=== PATIENT | male | born 1965 | race Hispanic/Latino ===

== ENCOUNTER 2023-04-29 06:38 | Inpatient (IN) | payer OTHER ==
[~2023-04-29] VITALS: Ht 170.2 cm; Wt 77.1 kg
[2023-04-29] VITALS (23 sets, daily range): BP systolic 127–155; BP diastolic 61–88
[2023-04-29 07:14] LABS: BASOPHILS % (AUTO) 0.4 % (0.0-5.0); EOSINOPHILS % (AUTO) 0.6 % (0.0-8.0); HEMATOCRIT 43.3 % (42-54); LYMPHOCYTES % (AUTO) 6.8 % (21.0-51.0); MEAN CORPUSCULAR HEMOGLOBIN 30.8 pg (27.0-33.0); MEAN CORPUSCULAR HGB CONC 34.2 g/dL (32.0-36.0); MONOCYTES % (AUTO) 7.6 % (3.0-13.0); NEUTROPHILS % (AUTO) 83.5 % (40.0-77.0); PLATELET COUNT (AUTO) 202 K/uL (130-400); RED BLOOD CELL COUNT(AUTO) 4.81 MIL/uL (4.50-6.20); RED CELL DISTRIBUTION WIDTH 12.3 % (11.0-15.5); WHITE BLOOD COUNT (AUTO) 14.6 K/uL (4.8-10.8)
[2023-04-29 07:25] LABS: ALBUMIN 2.9 g/dL (3.5-5.0); MAGNESIUM 2.2 mg/dL (1.80-2.40); POTASSIUM 4.1 mmol/L (3.5-5.1); TOTAL PROTEIN, SERUM 7.5 g/dL (6.0-8.3)
[2023-04-29 07:54] LABS: APPEARANCE,URINE CLEAR (CLEAR); BILIRUBIN,URINE NEGATIVE (NEGATIVE); COLOR,URINE YELLOW (YELLOW); GLUCOSE, URINE (UA) NEGATIVE (NEGATIVE); KETONES,URINE NEGATIVE (NEGATIVE); LEUKOCYTE ESTERASE ,URINE NEGATIVE Leu/uL (NEGATIVE); NITRATE,URINE NEGATIVE (NEGATIVE); OCCULT BLOOD,URINE TRACE-INTACT (NEGATIVE); PH,URINE 6.5 (5.0-8.0); PROTEIN,URINE TRACE mg/dL (NEGATIVE)
[2023-04-29] MEDS ORDERED: IOHEXOL-350 75 ML VIAL IV ONE (07:58)
[2023-04-29 08:39] LABS: BACTERIA,URINE Rare /HPF (None Seen); RBC,URINE 0-1 /HPF (0-1); SQUAMOUS EPITHELIAL CELL,UR Rare /HPF (0-2); WBC,URINE None Seen /HPF (0-1)
[2023-04-29] MEDS ORDERED: ZOSYN 3.375GM+NS 50ML 50 ML IVPB ONE (08:59)
[2023-04-29] MEDS ORDERED: 0.9%NACL 50ML IV SCH (09:00)
[2023-04-29] MEDS ORDERED: 0.9%NACL 1000ML 1,000 ML IV SCH (09:00)
[2023-04-29] MEDS ORDERED: ONDANSETRON 4MG INJ IVP ONE (09:00)
[2023-04-29] MEDS ORDERED: MORPHINE 4 MG SYG IVP PRN (09:00)
[2023-04-29] MEDS: ZOSYN 3.375GM +NS 50ML IVPB SCH ×2 (09:10→16:53)
[2023-04-29] MEDS ORDERED: ROCURONIUM 10MG/1ML SYR 10 MG/ML ML ONE (10:41)
[2023-04-29] MEDS ORDERED: SUCCINYLCHOLINE 200MG/10ML SYR ONE (10:41)
[2023-04-29] MEDS ORDERED: PROPOFOL 10 MG/ML 20ML VIAL IV ONE (10:41)
[2023-04-29] MEDS ORDERED: FENTANYL CITRATE PF 50 MCG/1 ML 2ML VIAL ONE (10:41)
[2023-04-29] MEDS ORDERED: MIDAZOLAM HCL 1 MG/ML 2ML VIAL ONE (10:41)
[2023-04-29] MEDS ORDERED: BUPIVACAINE/PF 0.5% 30ML VIAL ONE (10:49)
[2023-04-29] MEDS ORDERED: BUPIVACAINE/PF 0.5% 30ML VIAL INJ ONE (11:38)
[2023-04-29] MEDS ORDERED: ONDANSETRON 4MG INJ IVP PRN (12:00)
[2023-04-29] MEDS ORDERED: D5W-1/2 NS/20MEQ KCL 1,000 ML IV SCH (12:00)
[2023-04-29] MEDS ORDERED: HYDROCODONE/ACETAMINOPHEN 5/325 MG TAB PO PRN (12:00)
[2023-04-29] MEDS ORDERED: MEPERIDINE-PF 25 MG/ML SYG ONE (12:21)
[2023-04-29 13:18] LABS: INR 0.97 (0.85-1.15); PROTHROMBIN TIME 11.3 SEC (9.6-11.6)
[2023-04-29 13:19] LABS: PARTIAL THROMBOPLASTIN TIME 27.6 SEC (26.3-35.5)
[2023-04-29 13:33] LABS: CRP QUANTITATIVE 207.6 mg/L (0.00-9.0)
[2023-04-29 13:34] LABS: THYROID STIMULATING HORMONE 2.34 uIU/mL (0.36-3.74)
[2023-04-29 13:47] LABS: HEMOGLOBIN A1C 5.8 % (4.0-6.0)
[2023-04-29] MEDS: MORPHINE 4 MG SYG IV PRN ×2 (14:21→20:06)
[2023-04-29] MEDS: FLUCONAZOLE 200 MG/NS 100 ML 100 ML IV SCH (14:21)
[2023-04-29] MEDS: DEXTROSE 5 % AND 0.9 % NACL 1,000 ML IV SCH (14:34)
[2023-04-29] MEDS: ACETAMINOPHEN 325 MG TAB PO PRN (17:38)
[2023-04-29] MEDS: FAMOTIDINE 20MG VIAL IV SCH (20:06)
[2023-04-30] MEDS: KETOROLAC 15MG/ML VIAL (15MG/ML) IV PRN ×2 (01:44→11:02)
[2023-04-30] MEDS: ZOSYN 3.375GM +NS 50ML IVPB SCH ×3 (01:45→17:14)
[2023-04-30] MEDS: DEXTROSE 5 % AND 0.9 % NACL 1,000 ML IV SCH (02:20)
[2023-04-30 03:30] VITALS: BP 123/65
[2023-04-30 05:09] LABS: BASOPHILS % (AUTO) 0.8 % (0.0-5.0); EOSINOPHILS % (AUTO) 0.1 % (0.0-8.0); HEMATOCRIT 39.7 % (42-54); LYMPHOCYTES % (AUTO) 10.1 % (21.0-51.0); MEAN CORPUSCULAR HEMOGLOBIN 30.9 pg (27.0-33.0); MEAN CORPUSCULAR HGB CONC 34.3 g/dL (32.0-36.0); MEAN CORPUSCULAR VOLUME 90.2 fL (79-99); MONOCYTES % (AUTO) 12.1 % (3.0-13.0); NEUTROPHILS % (AUTO) 75.7 % (40.0-77.0); PLATELET COUNT (AUTO) 200 K/uL (130-400); RED CELL DISTRIBUTION WIDTH 12.6 % (11.0-15.5); WHITE BLOOD COUNT (AUTO) 9.3 K/uL (4.8-10.8)
[2023-04-30 05:27] LABS: ALBUMIN 2.2 g/dL (3.5-5.0); CREATININE 1.4 mg/dL (0.5-1.5); MAGNESIUM 1.7 mg/dL (1.80-2.40); POTASSIUM 4.2 mmol/L (3.5-5.1); TOTAL PROTEIN, SERUM 6.3 g/dL (6.0-8.3)
[2023-04-30 08:00] VITALS: BP 116/74
[2023-04-30] MEDS: FAMOTIDINE 20MG VIAL IV SCH ×2 (08:39→22:36)
[2023-04-30] MEDS: SIMETHICONE 80 MG TAB.CHEW PO PRN ×2 (10:50→15:40)
[2023-04-30] MEDS ORDERED: ACET-2079 PO (11:54)
[2023-04-30 11:55] VITALS: BP 137/80
[2023-04-30] MEDS: FLUCONAZOLE 200 MG/NS 100 ML 100 ML IV SCH (15:38)
[2023-04-30 16:00] VITALS: BP 134/78
[2023-04-30 19:00] VITALS: BP 130/61
[2023-04-30] MEDS: ACETAMINOPHEN 325 MG TAB PO PRN (20:09)
[2023-04-30 23:00] VITALS: BP 123/70
[2023-04-30] MEDS: 0.9%NACL 1000ML 1,000 ML IV SCH (23:40)
[2023-05-01] MEDS: 0.9%NACL 1000ML 1,000 ML IV SCH ×3 (01:46→23:00)
[2023-05-01] MEDS: ZOSYN 3.375GM +NS 50ML IVPB SCH ×3 (01:46→16:36)
[2023-05-01 04:00] VITALS: BP 141/74
[2023-05-01 06:10] LABS: BASOPHILS % (AUTO) 0.5 % (0.0-5.0); EOSINOPHILS % (AUTO) 0.1 % (0.0-8.0); LYMPHOCYTES % (AUTO) 9.4 % (21.0-51.0); MEAN CORPUSCULAR HEMOGLOBIN 30.7 pg (27.0-33.0); MEAN CORPUSCULAR HGB CONC 34.2 g/dL (32.0-36.0); MEAN CORPUSCULAR VOLUME 89.6 fL (79-99); MONOCYTES % (AUTO) 8.4 % (3.0-13.0); NEUTROPHILS % (AUTO) 79.5 % (40.0-77.0); PLATELET COUNT (AUTO) 217 K/uL (130-400); RED BLOOD CELL COUNT(AUTO) 4.24 MIL/uL (4.50-6.20); RED CELL DISTRIBUTION WIDTH 12.7 % (11.0-15.5)
[2023-05-01 06:48] LABS: ALBUMIN 2.1 g/dL (3.5-5.0); CREATININE 1.2 mg/dL (0.5-1.5); MAGNESIUM 2.1 mg/dL (1.80-2.40); POTASSIUM 3.7 mmol/L (3.5-5.1); TOTAL PROTEIN, SERUM 6.3 g/dL (6.0-8.3)
[2023-05-01 08:00] VITALS: BP 138/78
[2023-05-01] MEDS: SIMETHICONE 80 MG TAB.CHEW PO PRN ×2 (08:26→16:36)
[2023-05-01] MEDS: FAMOTIDINE 20MG VIAL IV SCH ×2 (08:26→21:02)
[2023-05-01] MEDS ORDERED: HYDROCODONE/ACETAMINOPHEN 5/325 MG TAB PO ONE (08:30)
[2023-05-01 12:00] VITALS: BP 136/78
[2023-05-01] MEDS: FLUCONAZOLE 200 MG/NS 100 ML 100 ML IV SCH (13:28)
[2023-05-01 16:00] VITALS: BP 135/78
[2023-05-01] MEDS: HYDROCODONE/ACETAMINOPHEN 5/325 MG TAB PO PRN (16:37)
[2023-05-01 20:00] VITALS: BP 144/75
[2023-05-02] VITALS (7 sets, daily range): BP systolic 129–156; BP diastolic 75–82
[2023-05-02] MEDS ORDERED: LACTULOSE 20 GM/30 ML UDCUP PO ONE
[2023-05-02] MEDS: ZOSYN 3.375GM +NS 50ML IVPB SCH ×3 (00:15→17:26)
[2023-05-02] MEDS: KETOROLAC 15MG/ML VIAL (15MG/ML) IV PRN ×2 (03:52→20:28)
[2023-05-02 05:33] LABS: BASOPHILS % (AUTO) 0.5 % (0.0-5.0); EOSINOPHILS % (AUTO) 0.1 % (0.0-8.0); LYMPHOCYTES % (AUTO) 7.7 % (21.0-51.0); MEAN CORPUSCULAR HEMOGLOBIN 30.5 pg (27.0-33.0); MEAN CORPUSCULAR HGB CONC 33.1 g/dL (32.0-36.0); MEAN CORPUSCULAR VOLUME 92.2 fL (79-99); MONOCYTES % (AUTO) 5.8 % (3.0-13.0); NEUTROPHILS % (AUTO) 84.6 % (40.0-77.0); PLATELET COUNT (AUTO) 256 K/uL (130-400); RED BLOOD CELL COUNT(AUTO) 4.23 MIL/uL (4.50-6.20); RED CELL DISTRIBUTION WIDTH 12.9 % (11.0-15.5); WHITE BLOOD COUNT (AUTO) 20.6 K/uL (4.8-10.8)
[2023-05-02 05:58] LABS: ALBUMIN 1.9 g/dL (3.5-5.0); CREATININE 1.2 mg/dL (0.5-1.5); POTASSIUM 3.6 mmol/L (3.5-5.1); TOTAL PROTEIN, SERUM 6.5 g/dL (6.0-8.3)
[2023-05-02] MEDS: FAMOTIDINE 20MG VIAL IV SCH ×2 (08:13→20:32)
[2023-05-02] MEDS: POLYETHYLENE GLYCOL 3350 17 GM POWD.PACK PO SCH (08:13)
[2023-05-02] MEDS: HYDROCODONE/ACETAMINOPHEN 5/325 MG TAB PO PRN (08:34)
[2023-05-02] MEDS: 0.9%NACL 1000ML 1,000 ML IV SCH (12:20)
[2023-05-02] MEDS: FLUCONAZOLE 200 MG/NS 100 ML 100 ML IV SCH (14:45)
[2023-05-02] MEDS ORDERED: IOHEXOL 350 MG/ML 100ML INFUS..BTL IV ONE (17:50)
[2023-05-02] MEDS: HEPARIN 5,000 UNIT VIAL SQ SCH (20:32)
[2023-05-03] MEDS: ZOSYN 3.375GM +NS 50ML IVPB SCH ×3 (00:10→16:36)
[2023-05-03] MEDS: 0.9%NACL 1000ML 1,000 ML IV SCH ×2 (01:40→14:52)
[2023-05-03 04:00] VITALS: BP 143/78
[2023-05-03] MEDS: KETOROLAC 15MG/ML VIAL (15MG/ML) IV PRN (04:33)
[2023-05-03] MEDS: POLYETHYLENE GLYCOL 3350 17 GM POWD.PACK PO SCH (08:09)
[2023-05-03] MEDS: FAMOTIDINE 20MG VIAL IV SCH ×2 (08:09→21:02)
[2023-05-03] MEDS: HEPARIN 5,000 UNIT VIAL SQ SCH ×2 (08:18→21:11)
[2023-05-03 08:21] VITALS: BP 136/78
[2023-05-03 11:30] VITALS: BP 144/87
[2023-05-03] MEDS: MORPHINE 4 MG SYG IV PRN ×3 (11:39→22:14)
[2023-05-03 12:14] LABS: HEMATOCRIT 37.8 % (42-54); MEAN CORPUSCULAR HEMOGLOBIN 30.9 pg (27.0-33.0); MEAN CORPUSCULAR HGB CONC 33.6 g/dL (32.0-36.0); RED BLOOD CELL COUNT(AUTO) 4.11 MIL/uL (4.50-6.20); RED CELL DISTRIBUTION WIDTH 13.1 % (11.0-15.5); WHITE BLOOD COUNT (AUTO) 16.7 K/uL (4.8-10.8)
[2023-05-03 12:24] LABS: CREATININE 0.9 mg/dL (0.5-1.5); MAGNESIUM 2.3 mg/dL (1.80-2.40); POTASSIUM 3.9 mmol/L (3.5-5.1)
[2023-05-03] MEDS: FLUCONAZOLE 200 MG/NS 100 ML 100 ML IV SCH (14:50)
[2023-05-03 16:00] VITALS: BP 141/78
[2023-05-03] MEDS: ACETAMINOPHEN 325 MG TAB PO PRN (16:37)
[2023-05-03 20:35] VITALS: BP 141/72
[2023-05-03 23:54] VITALS: BP 141/80
[2023-05-04] MEDS: ZOSYN 3.375GM +NS 50ML IVPB SCH ×3 (01:41→16:33)
[2023-05-04] MEDS: KETOROLAC 15MG/ML VIAL (15MG/ML) IV PRN (01:47)
[2023-05-04] MEDS: 0.9%NACL 1000ML 1,000 ML IV SCH (04:01)
[2023-05-04 05:02] VITALS: BP 135/74
[2023-05-04 05:06] LABS: BASOPHILS % (AUTO) 0.5 % (0.0-5.0); EOSINOPHILS % (AUTO) 0.5 % (0.0-8.0); HEMATOCRIT 34.9 % (42-54); LYMPHOCYTES % (AUTO) 8.6 % (21.0-51.0); MEAN CORPUSCULAR HGB CONC 33.8 g/dL (32.0-36.0); MEAN CORPUSCULAR VOLUME 91.6 fL (79-99); MONOCYTES % (AUTO) 7.3 % (3.0-13.0); NEUTROPHILS % (AUTO) 81.2 % (40.0-77.0); PLATELET COUNT (AUTO) 333 K/uL (130-400); RED BLOOD CELL COUNT(AUTO) 3.81 MIL/uL (4.50-6.20); RED CELL DISTRIBUTION WIDTH 12.8 % (11.0-15.5); WHITE BLOOD COUNT (AUTO) 15.1 K/uL (4.8-10.8)
[2023-05-04 05:31] LABS: ALBUMIN 1.7 g/dL (3.5-5.0); CREATININE 1.1 mg/dL (0.5-1.5); POTASSIUM 3.7 mmol/L (3.5-5.1)
[2023-05-04 07:59] VITALS: BP 150/79
[2023-05-04] MEDS: POLYETHYLENE GLYCOL 3350 17 GM POWD.PACK PO SCH (09:00)
[2023-05-04] MEDS: MORPHINE 4 MG SYG IV PRN (09:29)
[2023-05-04 11:41] VITALS: BP 147/77
[2023-05-04] MEDS: HYDROCODONE/ACETAMINOPHEN 5/325 MG TAB PO PRN ×3 (13:36→20:34)
[2023-05-04] MEDS: FLUCONAZOLE 200 MG/NS 100 ML 100 ML IV SCH (13:36)
[2023-05-04] MEDS: HEPARIN 5,000 UNIT VIAL SQ SCH ×2 (13:52→20:00)
[2023-05-04] MEDS: FAMOTIDINE 20MG VIAL IV SCH ×2 (13:53→20:33)
[2023-05-04 16:00] VITALS: BP 139/72
[2023-05-04 20:28] VITALS: BP 141/73
[2023-05-05] VITALS (12 sets, daily range): BP systolic 117–151; BP diastolic 63–80
[2023-05-05] MEDS: ZOSYN 3.375GM +NS 50ML IVPB SCH ×3 (01:13→17:48)
[2023-05-05] MEDS: MORPHINE 2 MG SYG IVP PRN ×2 (03:45→20:38)
[2023-05-05] MEDS: KETOROLAC 15MG/ML VIAL (15MG/ML) IV PRN ×2 (04:35→14:07)
[2023-05-05 05:34] LABS: BASOPHILS % (AUTO) 0.4 % (0.0-5.0); EOSINOPHILS % (AUTO) 0.5 % (0.0-8.0); HEMATOCRIT 34.3 % (42-54); LYMPHOCYTES % (AUTO) 8.1 % (21.0-51.0); MEAN CORPUSCULAR HEMOGLOBIN 31.2 pg (27.0-33.0); MEAN CORPUSCULAR HGB CONC 33.5 g/dL (32.0-36.0); MONOCYTES % (AUTO) 6.8 % (3.0-13.0); NEUTROPHILS % (AUTO) 82.3 % (40.0-77.0); PLATELET COUNT (AUTO) 370 K/uL (130-400); RED BLOOD CELL COUNT(AUTO) 3.69 MIL/uL (4.50-6.20); RED CELL DISTRIBUTION WIDTH 12.8 % (11.0-15.5); WHITE BLOOD COUNT (AUTO) 12.6 K/uL (4.8-10.8)
[2023-05-05 05:44] LABS: INR 1.03 (0.85-1.15); PROTHROMBIN TIME 11.9 SEC (9.6-11.6)
[2023-05-05 05:46] LABS: PARTIAL THROMBOPLASTIN TIME 27.5 SEC (26.3-35.5)
[2023-05-05 06:11] LABS: ALBUMIN 1.8 g/dL (3.5-5.0); CREATININE 0.9 mg/dL (0.5-1.5); POTASSIUM 3.3 mmol/L (3.5-5.1); TOTAL PROTEIN, SERUM 6.1 g/dL (6.0-8.3)
[2023-05-05] MEDS: HEPARIN 5,000 UNIT VIAL SQ SCH ×2 (08:00→20:18)
[2023-05-05] MEDS ORDERED: MAGNESIUM 2GM PREMIX 50ML 50 ML IV PRN (09:00)
[2023-05-05] MEDS: POLYETHYLENE GLYCOL 3350 17 GM POWD.PACK PO SCH (09:00)
[2023-05-05] MEDS ORDERED: POTASSIUM CHLORIDE 20MEQ/100ML 100 ML IV PRN (09:00)
[2023-05-05] MEDS: FAMOTIDINE 20MG VIAL IV SCH ×2 (10:06→20:17)
[2023-05-05] MEDS ORDERED: MIDAZOLAM HCL 1 MG/ML 2ML VIAL ONE (12:06)
[2023-05-05] MEDS ORDERED: FENTANYL CITRATE PF 50 MCG/1 ML 2ML VIAL ONE (12:06)
[2023-05-05] MEDS: FLUCONAZOLE 200 MG/NS 100 ML 100 ML IV SCH (14:06)
[2023-05-05] MEDS: ACETAMINOPHEN 325 MG TAB PO PRN (23:58)
[2023-05-06] VITALS: BP 136/70
[2023-05-06] MEDS ORDERED: POTASSIUM CHLORIDE 10% ELIXIR 20 MEQ/15 ML UDCUP PO PRN
[2023-05-06] MEDS: ZOSYN 3.375GM +NS 50ML IVPB SCH ×3 (01:11→16:16)
[2023-05-06 04:00] VITALS: BP 142/77
[2023-05-06 05:45] LABS: BASOPHILS % (AUTO) 0.6 % (0.0-5.0); EOSINOPHILS % (AUTO) 1.4 % (0.0-8.0); HEMATOCRIT 34.9 % (42-54); LYMPHOCYTES % (AUTO) 12.9 % (21.0-51.0); MEAN CORPUSCULAR HEMOGLOBIN 30.7 pg (27.0-33.0); MEAN CORPUSCULAR VOLUME 93.1 fL (79-99); MONOCYTES % (AUTO) 8.7 % (3.0-13.0); NEUTROPHILS % (AUTO) 71.8 % (40.0-77.0); PLATELET COUNT (AUTO) 403 K/uL (130-400); RED BLOOD CELL COUNT(AUTO) 3.75 MIL/uL (4.50-6.20); RED CELL DISTRIBUTION WIDTH 12.9 % (11.0-15.5); WHITE BLOOD COUNT (AUTO) 7.8 K/uL (4.8-10.8)
[2023-05-06 06:11] LABS: ALBUMIN 1.7 g/dL (3.5-5.0); CREATININE 1.1 mg/dL (0.5-1.5); POTASSIUM 3.3 mmol/L (3.5-5.1); TOTAL PROTEIN, SERUM 5.8 g/dL (6.0-8.3)
[2023-05-06] MEDS: MORPHINE 2 MG SYG IVP PRN (06:14)
[2023-05-06] MEDS: KCL 20 MEQ ERTAB PO PRN ×3 (06:53→16:17)
[2023-05-06 07:05] VITALS: BP 146/77
[2023-05-06] MEDS: FAMOTIDINE 20MG VIAL IV SCH ×2 (08:13→20:16)
[2023-05-06] MEDS: POLYETHYLENE GLYCOL 3350 17 GM POWD.PACK PO SCH (08:13)
[2023-05-06] MEDS: HEPARIN 5,000 UNIT VIAL SQ SCH ×2 (08:15→20:16)
[2023-05-06] MEDS: KETOROLAC 15MG/ML VIAL (15MG/ML) IV PRN ×2 (08:23→16:17)
[2023-05-06 12:00] VITALS: BP 133/75
[2023-05-06] MEDS: FLUCONAZOLE 200 MG/NS 100 ML 100 ML IV SCH (14:22)
[2023-05-06 16:00] VITALS: BP 159/74
[2023-05-06 20:00] VITALS: BP 139/73
[2023-05-07] VITALS: BP 136/83
[2023-05-07] MEDS: KETOROLAC 15MG/ML VIAL (15MG/ML) IV PRN ×2 (00:17→09:32)
[2023-05-07] MEDS: ZOSYN 3.375GM +NS 50ML IVPB SCH ×3 (00:17→15:59)
[2023-05-07 04:00] VITALS: BP 158/95
[2023-05-07] MEDS: MORPHINE 2 MG SYG IVP PRN ×2 (04:06→20:38)
[2023-05-07 05:51] LABS: HEMATOCRIT 35.5 % (42-54); MEAN CORPUSCULAR HEMOGLOBIN 30.8 pg (27.0-33.0); MEAN CORPUSCULAR VOLUME 93.4 fL (79-99); RED BLOOD CELL COUNT(AUTO) 3.8 MIL/uL (4.50-6.20); WHITE BLOOD COUNT (AUTO) 6.5 K/uL (4.8-10.8)
[2023-05-07 06:28] LABS: ALBUMIN 1.7 g/dL (3.5-5.0); CREATININE 1.1 mg/dL (0.5-1.5); POTASSIUM 3.9 mmol/L (3.5-5.1); TOTAL PROTEIN, SERUM 5.8 g/dL (6.0-8.3)
[2023-05-07 08:00] VITALS: BP 143/75
[2023-05-07] MEDS: FAMOTIDINE 20MG VIAL IV SCH ×2 (09:01→20:37)
[2023-05-07] MEDS: AMLODIPINE 5 MG TAB PO SCH (09:01)
[2023-05-07] MEDS: POLYETHYLENE GLYCOL 3350 17 GM POWD.PACK PO SCH (09:01)
[2023-05-07] MEDS: HEPARIN 5,000 UNIT VIAL SQ SCH ×2 (09:02→21:33)
[2023-05-07 11:50] VITALS: BP 131/73
[2023-05-07] MEDS: ACETAMINOPHEN WITH CODEINE 1 TAB TAB PO PRN ×2 (12:22→15:59)
[2023-05-07] MEDS: FLUCONAZOLE 200 MG/NS 100 ML 100 ML IV SCH (15:59)
[2023-05-07 16:00] VITALS: BP 123/65
[2023-05-07 20:00] VITALS: BP 138/68
[2023-05-08] VITALS (7 sets, daily range): BP systolic 120–139; BP diastolic 58–71
[2023-05-08] MEDS: ZOSYN 3.375GM +NS 50ML IVPB SCH ×3 (00:29→18:27)
[2023-05-08] MEDS: MORPHINE 2 MG SYG IVP PRN ×2 (03:53→16:50)
[2023-05-08 05:41] LABS: BASOPHILS % (AUTO) 0.4 % (0.0-5.0); EOSINOPHILS % (AUTO) 1.2 % (0.0-8.0); HEMATOCRIT 36.6 % (42-54); LYMPHOCYTES % (AUTO) 14.2 % (21.0-51.0); MEAN CORPUSCULAR HEMOGLOBIN 30.5 pg (27.0-33.0); MEAN CORPUSCULAR HGB CONC 32.5 g/dL (32.0-36.0); MEAN CORPUSCULAR VOLUME 93.8 fL (79-99); MONOCYTES % (AUTO) 7.2 % (3.0-13.0); NEUTROPHILS % (AUTO) 74.3 % (40.0-77.0); PLATELET COUNT (AUTO) 459 K/uL (130-400); RED CELL DISTRIBUTION WIDTH 12.8 % (11.0-15.5); WHITE BLOOD COUNT (AUTO) 10.1 K/uL (4.8-10.8)
[2023-05-08 05:58] LABS: ALBUMIN 1.9 g/dL (3.5-5.0)
[2023-05-08] MEDS: ACETAMINOPHEN WITH CODEINE 1 TAB TAB PO PRN ×2 (08:45→18:32)
[2023-05-08] MEDS: AMLODIPINE 5 MG TAB PO SCH (08:45)
[2023-05-08] MEDS: HEPARIN 5,000 UNIT VIAL SQ SCH ×2 (08:51→20:30)
[2023-05-08] MEDS: FAMOTIDINE 20MG VIAL IV SCH ×2 (08:51→19:58)
[2023-05-08] MEDS ORDERED: IOHEXOL-350 75 ML VIAL IV ONE (09:01)
[2023-05-08] MEDS: FLUCONAZOLE 200 MG/NS 100 ML 100 ML IV SCH (16:33)
[2023-05-08] MEDS: POLYETHYLENE GLYCOL 3350 17 GM POWD.PACK PO SCH (16:33)
[2023-05-09] MEDS: ZOSYN 3.375GM +NS 50ML IVPB SCH ×2 (01:08→10:12)
[2023-05-09] MEDS: ACETAMINOPHEN WITH CODEINE 1 TAB TAB PO PRN ×3 (01:10→20:44)
[2023-05-09] MEDS ORDERED: VANCOMYCIN 750MG VIAL IVPB SCH (02:00)
[2023-05-09 05:00] VITALS: BP 129/65
[2023-05-09 05:36] LABS: BASOPHILS % (AUTO) 0.4 % (0.0-5.0); EOSINOPHILS % (AUTO) 1.9 % (0.0-8.0); LYMPHOCYTES % (AUTO) 17.7 % (21.0-51.0); MEAN CORPUSCULAR HEMOGLOBIN 31.6 pg (27.0-33.0); MEAN CORPUSCULAR HGB CONC 33.7 g/dL (32.0-36.0); MEAN CORPUSCULAR VOLUME 93.6 fL (79-99); MONOCYTES % (AUTO) 8.2 % (3.0-13.0); NEUTROPHILS % (AUTO) 68.6 % (40.0-77.0); PLATELET COUNT (AUTO) 504 K/uL (130-400); RED BLOOD CELL COUNT(AUTO) 3.74 MIL/uL (4.50-6.20); RED CELL DISTRIBUTION WIDTH 12.9 % (11.0-15.5); WHITE BLOOD COUNT (AUTO) 9.1 K/uL (4.8-10.8)
[2023-05-09 05:53] LABS: CREATININE 1.2 mg/dL (0.5-1.5); CRP QUANTITATIVE 113.7 mg/L (0.00-9.0); POTASSIUM 3.8 mmol/L (3.5-5.1); TOTAL PROTEIN, SERUM 6.1 g/dL (6.0-8.3)
[2023-05-09 07:17] LABS: ERYTHROCYTE SEDIMENTATION RATE 34 MM/HR (0-20)
[2023-05-09 08:00] VITALS: BP 136/72
[2023-05-09] MEDS: POLYETHYLENE GLYCOL 3350 17 GM POWD.PACK PO SCH (10:12)
[2023-05-09] MEDS: FAMOTIDINE 20MG VIAL IV SCH ×2 (10:12→20:44)
[2023-05-09] MEDS: AMLODIPINE 5 MG TAB PO SCH (10:12)
[2023-05-09] MEDS: HEPARIN 5,000 UNIT VIAL SQ SCH ×2 (10:27→20:48)
[2023-05-09 12:01] VITALS: BP 126/63
[2023-05-09] MEDS ORDERED: PREDNISONE 5 MG TABLET PO ONE (12:30)
[2023-05-09] MEDS ORDERED: DIPHENHYDRAMINE HCL 25 MG CAPSULE PO PRN (12:30)
[2023-05-09] MEDS ORDERED: VANCOMYCIN PROTOCOL PER PHARMACY IV SCH (13:30)
[2023-05-09] MEDS ORDERED: LEVOFLOXACIN 750 MG TABLET PO SCH (13:30)
[2023-05-09] MEDS ORDERED: VANCOMYCIN 1.75 GM/250 ML BAG 250 ML IV ONE (14:00)
[2023-05-09 16:00] VITALS: BP 130/65
[2023-05-09] MEDS: SIMETHICONE 80 MG TAB.CHEW PO PRN (18:22)
[2023-05-09 19:00] VITALS: BP 135/64
[2023-05-09 23:00] VITALS: BP 118/63
[2023-05-10] MEDS: VANCOMYCIN 750MG VIAL IVPB SCH ×2 (00:52→14:35)
[2023-05-10 05:25] LABS: BASOPHILS % (AUTO) 0.6 % (0.0-5.0); EOSINOPHILS % (AUTO) 1.6 % (0.0-8.0); LYMPHOCYTES % (AUTO) 14.1 % (21.0-51.0); MEAN CORPUSCULAR HEMOGLOBIN 30.4 pg (27.0-33.0); MEAN CORPUSCULAR HGB CONC 32.6 g/dL (32.0-36.0); MEAN CORPUSCULAR VOLUME 93.1 fL (79-99); MONOCYTES % (AUTO) 6.2 % (3.0-13.0); NEUTROPHILS % (AUTO) 74.2 % (40.0-77.0); PLATELET COUNT (AUTO) 539 K/uL (130-400); RED BLOOD CELL COUNT(AUTO) 4.08 MIL/uL (4.50-6.20); RED CELL DISTRIBUTION WIDTH 12.7 % (11.0-15.5); WHITE BLOOD COUNT (AUTO) 8.9 K/uL (4.8-10.8)
[2023-05-10 05:43] LABS: POTASSIUM 4.2 mmol/L (3.5-5.1); TOTAL PROTEIN, SERUM 6.5 g/dL (6.0-8.3)
[2023-05-10 07:59] VITALS: BP 135/69
[2023-05-10] MEDS: POLYETHYLENE GLYCOL 3350 17 GM POWD.PACK PO SCH (08:20)
[2023-05-10] MEDS: FAMOTIDINE 20MG VIAL IV SCH ×2 (08:20→19:53)
[2023-05-10] MEDS: AMLODIPINE 5 MG TAB PO SCH (08:20)
[2023-05-10] MEDS: HEPARIN 5,000 UNIT VIAL SQ SCH ×2 (08:25→20:07)
[2023-05-10 12:00] VITALS: BP 118/63
[2023-05-10] MEDS: ACETAMINOPHEN WITH CODEINE 1 TAB TAB PO PRN ×2 (14:40→21:18)
[2023-05-10 16:00] VITALS: BP 123/67
[2023-05-10 19:30] VITALS: BP 127/67
[2023-05-10 23:00] VITALS: BP 123/68
[2023-05-11] MEDS: VANCOMYCIN 750MG VIAL IVPB SCH (01:59)
[2023-05-11 04:00] VITALS: BP 127/68
[2023-05-11 04:45] LABS: BASOPHILS % (AUTO) 0.5 % (0.0-5.0); EOSINOPHILS % (AUTO) 3.4 % (0.0-8.0); HEMATOCRIT 37.5 % (42-54); LYMPHOCYTES % (AUTO) 20.2 % (21.0-51.0); MEAN CORPUSCULAR HEMOGLOBIN 30.5 pg (27.0-33.0); MEAN CORPUSCULAR HGB CONC 32.5 g/dL (32.0-36.0); MEAN CORPUSCULAR VOLUME 93.8 fL (79-99); MONOCYTES % (AUTO) 7.3 % (3.0-13.0); NEUTROPHILS % (AUTO) 65.2 % (40.0-77.0); PLATELET COUNT (AUTO) 475 K/uL (130-400); RED CELL DISTRIBUTION WIDTH 12.8 % (11.0-15.5)
[2023-05-11 05:06] LABS: ALBUMIN 2.2 g/dL (3.5-5.0); CREATININE 1.2 mg/dL (0.5-1.5); POTASSIUM 4.3 mmol/L (3.5-5.1); TOTAL PROTEIN, SERUM 6.3 g/dL (6.0-8.3)
[2023-05-11 08:00] VITALS: BP 135/79
[2023-05-11] MEDS: POLYETHYLENE GLYCOL 3350 17 GM POWD.PACK PO SCH (08:37)
[2023-05-11] MEDS: AMLODIPINE 5 MG TAB PO SCH (08:37)
[2023-05-11] MEDS: FAMOTIDINE 20MG VIAL IV SCH ×2 (08:37→20:26)
[2023-05-11] MEDS: ACETAMINOPHEN WITH CODEINE 1 TAB TAB PO PRN ×2 (08:38→19:18)
[2023-05-11] MEDS: HEPARIN 5,000 UNIT VIAL SQ SCH ×2 (08:43→20:27)
[2023-05-11 12:00] VITALS: BP 130/62
[2023-05-11] MEDS: ACETAMINOPHEN 325 MG TAB PO PRN (15:20)
[2023-05-11] MEDS: VANCOMYCIN 1G/250ML KIT 250 ML IV SCH (15:34)
[2023-05-11 16:00] VITALS: BP 120/63
[2023-05-11 19:00] VITALS: BP 118/63
[2023-05-11 23:00] VITALS: BP 124/65
[2023-05-12] MEDS: VANCOMYCIN 1G/250ML KIT 250 ML IV SCH ×2 (02:07→20:00)
[2023-05-12] MEDS: ACETAMINOPHEN WITH CODEINE 1 TAB TAB PO PRN ×4 (02:15→21:22)
[2023-05-12 04:33] LABS: BASOPHILS % (AUTO) 0.3 % (0.0-5.0); EOSINOPHILS % (AUTO) 0.8 % (0.0-8.0); HEMATOCRIT 35.7 % (42-54); LYMPHOCYTES % (AUTO) 11.1 % (21.0-51.0); MEAN CORPUSCULAR HEMOGLOBIN 30.3 pg (27.0-33.0); MEAN CORPUSCULAR HGB CONC 32.8 g/dL (32.0-36.0); MEAN CORPUSCULAR VOLUME 92.5 fL (79-99); MONOCYTES % (AUTO) 5.1 % (3.0-13.0); NEUTROPHILS % (AUTO) 81.2 % (40.0-77.0); PLATELET COUNT (AUTO) 481 K/uL (130-400); RED BLOOD CELL COUNT(AUTO) 3.86 MIL/uL (4.50-6.20); RED CELL DISTRIBUTION WIDTH 13.2 % (11.0-15.5); WHITE BLOOD COUNT (AUTO) 10.6 K/uL (4.8-10.8)
[2023-05-12 04:40] LABS: ALBUMIN 2.2 g/dL (3.5-5.0); CREATININE 1.2 mg/dL (0.5-1.5); POTASSIUM 4.2 mmol/L (3.5-5.1); TOTAL PROTEIN, SERUM 6.4 g/dL (6.0-8.3)
[2023-05-12 05:00] VITALS: BP 104/60
[2023-05-12 07:23] LABS: CRP QUANTITATIVE 195.8 mg/L (0.00-9.0)
[2023-05-12 08:00] VITALS: BP 128/61
[2023-05-12] MEDS: POLYETHYLENE GLYCOL 3350 17 GM POWD.PACK PO SCH (09:18)
[2023-05-12] MEDS: AMLODIPINE 5 MG TAB PO SCH (09:18)
[2023-05-12] MEDS: FAMOTIDINE 20MG VIAL IV SCH ×2 (09:18→21:21)
[2023-05-12] MEDS: HEPARIN 5,000 UNIT VIAL SQ SCH ×2 (09:23→21:26)
[2023-05-12 12:00] VITALS: BP 124/65
[2023-05-12 16:00] VITALS: BP 141/66
[2023-05-12 23:00] VITALS: BP_SYST 105; BP_SYST 135; BP_DIAS 55; BP_DIAS 63
[2023-05-12] MEDS: ACETAMINOPHEN 325 MG TAB PO PRN (23:48)
[2023-05-13] MEDS: VANCOMYCIN 1G/250ML KIT 250 ML IV SCH ×2 (02:51→12:58)
[2023-05-13 05:00] VITALS: BP 123/58
[2023-05-13 05:02] LABS: BASOPHILS % (AUTO) 0.2 % (0.0-5.0); EOSINOPHILS % (AUTO) 0.6 % (0.0-8.0); HEMATOCRIT 34.8 % (42-54); LYMPHOCYTES % (AUTO) 9.9 % (21.0-51.0); MEAN CORPUSCULAR HEMOGLOBIN 30.5 pg (27.0-33.0); MEAN CORPUSCULAR HGB CONC 32.5 g/dL (32.0-36.0); MEAN CORPUSCULAR VOLUME 93.8 fL (79-99); MONOCYTES % (AUTO) 6.4 % (3.0-13.0); NEUTROPHILS % (AUTO) 81.7 % (40.0-77.0); PLATELET COUNT (AUTO) 435 K/uL (130-400); RED BLOOD CELL COUNT(AUTO) 3.71 MIL/uL (4.50-6.20); WHITE BLOOD COUNT (AUTO) 12.7 K/uL (4.8-10.8)
[2023-05-13 05:27] LABS: ALBUMIN 2.2 g/dL (3.5-5.0); CREATININE 1.1 mg/dL (0.5-1.5); POTASSIUM 4.1 mmol/L (3.5-5.1); TOTAL PROTEIN, SERUM 6.6 g/dL (6.0-8.3)
[2023-05-13] MEDS: ACETAMINOPHEN WITH CODEINE 1 TAB TAB PO PRN ×3 (06:47→18:46)
[2023-05-13 08:00] VITALS: BP 120/62
[2023-05-13] MEDS: POLYETHYLENE GLYCOL 3350 17 GM POWD.PACK PO SCH (09:30)
[2023-05-13] MEDS: FAMOTIDINE 20MG VIAL IV SCH ×2 (09:30→21:14)
[2023-05-13] MEDS: AMLODIPINE 5 MG TAB PO SCH (09:30)
[2023-05-13] MEDS: HEPARIN 5,000 UNIT VIAL SQ SCH ×2 (09:36→21:02)
[2023-05-13 11:00] VITALS: BP 120/65
[2023-05-13 16:00] VITALS: BP 115/65
[2023-05-13 19:00] VITALS: BP 124/65
[2023-05-13] MEDS: ACETAMINOPHEN 325 MG TAB PO PRN (22:06)
[2023-05-13 23:28] VITALS: BP 110/63
[2023-05-14] MEDS: VANCOMYCIN 1G/250ML KIT 250 ML IV SCH ×3 (02:41→18:01)
[2023-05-14 05:00] VITALS: BP 121/69
[2023-05-14 05:20] LABS: BASOPHILS % (AUTO) 0.3 % (0.0-5.0); EOSINOPHILS % (AUTO) 2.1 % (0.0-8.0); HEMATOCRIT 33.6 % (42-54); LYMPHOCYTES % (AUTO) 13.7 % (21.0-51.0); MEAN CORPUSCULAR HEMOGLOBIN 30.6 pg (27.0-33.0); MEAN CORPUSCULAR VOLUME 92.6 fL (79-99); MONOCYTES % (AUTO) 7.3 % (3.0-13.0); NEUTROPHILS % (AUTO) 75.4 % (40.0-77.0); PLATELET COUNT (AUTO) 408 K/uL (130-400); RED BLOOD CELL COUNT(AUTO) 3.63 MIL/uL (4.50-6.20); RED CELL DISTRIBUTION WIDTH 12.8 % (11.0-15.5); WHITE BLOOD COUNT (AUTO) 9.2 K/uL (4.8-10.8)
[2023-05-14 05:29] LABS: CREATININE 0.9 mg/dL (0.5-1.5); POTASSIUM 3.7 mmol/L (3.5-5.1)
[2023-05-14 05:37] LABS: TOTAL PROTEIN, SERUM 6.5 g/dL (6.0-8.3)
[2023-05-14] MEDS: KCL 20 MEQ ERTAB PO PRN (06:29)
[2023-05-14] MEDS: ACETAMINOPHEN WITH CODEINE 1 TAB TAB PO PRN ×3 (06:36→21:16)
[2023-05-14 08:00] VITALS: BP 107/60
[2023-05-14] MEDS: AMLODIPINE 5 MG TAB PO SCH (08:34)
[2023-05-14] MEDS: FAMOTIDINE 20MG VIAL IV SCH ×2 (08:34→20:05)
[2023-05-14] MEDS: POLYETHYLENE GLYCOL 3350 17 GM POWD.PACK PO SCH (08:34)
[2023-05-14] MEDS: HEPARIN 5,000 UNIT VIAL SQ SCH ×2 (08:35→20:12)
[2023-05-14 12:00] VITALS: BP 115/65
[2023-05-14 16:00] VITALS: BP 112/60
[2023-05-14 20:30] VITALS: BP 115/65
[2023-05-14 23:27] VITALS: BP 120/66
[2023-05-15] MEDS: VANCOMYCIN 1G/250ML KIT 250 ML IV SCH ×4 (00:39→16:23)
[2023-05-15] MEDS: ACETAMINOPHEN WITH CODEINE 1 TAB TAB PO PRN ×4 (03:06→21:18)
[2023-05-15 04:09] VITALS: BP 131/69
[2023-05-15 06:41] LABS: BASOPHILS % (AUTO) 0.8 % (0.0-5.0); EOSINOPHILS % (AUTO) 3.9 % (0.0-8.0); HEMATOCRIT 35.2 % (42-54); LYMPHOCYTES % (AUTO) 19.3 % (21.0-51.0); MEAN CORPUSCULAR HGB CONC 32.4 g/dL (32.0-36.0); MEAN CORPUSCULAR VOLUME 95.7 fL (79-99); MONOCYTES % (AUTO) 8.2 % (3.0-13.0); NEUTROPHILS % (AUTO) 66.5 % (40.0-77.0); PLATELET COUNT (AUTO) 393 K/uL (130-400); RED BLOOD CELL COUNT(AUTO) 3.68 MIL/uL (4.50-6.20); RED CELL DISTRIBUTION WIDTH 12.8 % (11.0-15.5); WHITE BLOOD COUNT (AUTO) 6.4 K/uL (4.8-10.8)
[2023-05-15 06:52] LABS: INR 0.95 (0.85-1.15); PROTHROMBIN TIME 11.1 SEC (9.6-11.6)
[2023-05-15 06:54] LABS: PARTIAL THROMBOPLASTIN TIME 29.2 SEC (26.3-35.5)
[2023-05-15 07:09] LABS: ALBUMIN 2.2 g/dL (3.5-5.0); CREATININE 0.9 mg/dL (0.5-1.5); POTASSIUM 4.3 mmol/L (3.5-5.1); TOTAL PROTEIN, SERUM 6.6 g/dL (6.0-8.3)
[2023-05-15 08:00] VITALS: BP 129/72
[2023-05-15] MEDS: AMLODIPINE 5 MG TAB PO SCH (09:05)
[2023-05-15] MEDS: FAMOTIDINE 20MG VIAL IV SCH ×2 (09:05→20:15)
[2023-05-15] MEDS: POLYETHYLENE GLYCOL 3350 17 GM POWD.PACK PO SCH (09:05)
[2023-05-15] MEDS: HEPARIN 5,000 UNIT VIAL SQ SCH ×2 (10:16→22:18)
[2023-05-15 12:00] VITALS: BP 128/64
[2023-05-15 16:00] VITALS: BP 114/66
[2023-05-15] MEDS ORDERED: DIATR MEGLU/DIATRIZOATE SODIUM 30 ML BOTTLE ONE (16:29)
[2023-05-15] MEDS ORDERED: IOHEXOL-350 75 ML VIAL IV ONE (18:49)
[2023-05-15 20:00] VITALS: BP 137/71
[2023-05-15] MEDS: VANCOMYCIN 750MG VIAL IVPB SCH (21:17)
[2023-05-15] MEDS: 0.9% NACL 250ML 250 ML IV SCH (21:17)
[2023-05-16] VITALS (7 sets, daily range): BP systolic 111–142; BP diastolic 60–74
[2023-05-16] MEDS: ACETAMINOPHEN WITH CODEINE 1 TAB TAB PO PRN ×3 (04:03→20:07)
[2023-05-16] MEDS: VANCOMYCIN 750MG VIAL IVPB SCH ×3 (05:11→23:24)
[2023-05-16] MEDS: 0.9% NACL 250ML 250 ML IV SCH ×3 (05:12→23:24)
[2023-05-16 05:18] LABS: BASOPHILS % (AUTO) 0.8 % (0.0-5.0); EOSINOPHILS % (AUTO) 3.8 % (0.0-8.0); HEMATOCRIT 35.3 % (42-54); LYMPHOCYTES % (AUTO) 18.9 % (21.0-51.0); MEAN CORPUSCULAR HEMOGLOBIN 30.2 pg (27.0-33.0); MEAN CORPUSCULAR HGB CONC 32.9 g/dL (32.0-36.0); MEAN CORPUSCULAR VOLUME 91.9 fL (79-99); MONOCYTES % (AUTO) 7.5 % (3.0-13.0); PLATELET COUNT (AUTO) 414 K/uL (130-400); RED BLOOD CELL COUNT(AUTO) 3.84 MIL/uL (4.50-6.20); RED CELL DISTRIBUTION WIDTH 12.7 % (11.0-15.5); WHITE BLOOD COUNT (AUTO) 6.1 K/uL (4.8-10.8)
[2023-05-16 05:59] LABS: ALBUMIN 2.3 g/dL (3.5-5.0); CREATININE 0.9 mg/dL (0.5-1.5); POTASSIUM 3.7 mmol/L (3.5-5.1); TOTAL PROTEIN, SERUM 6.6 g/dL (6.0-8.3)
[2023-05-16] MEDS: AMLODIPINE 5 MG TAB PO SCH (08:38)
[2023-05-16] MEDS: FAMOTIDINE 20MG VIAL IV SCH ×2 (08:38→20:06)
[2023-05-16] MEDS: POLYETHYLENE GLYCOL 3350 17 GM POWD.PACK PO SCH (08:38)
[2023-05-16] MEDS: HEPARIN 5,000 UNIT VIAL SQ SCH ×2 (08:39→20:11)
[2023-05-17 04:00] VITALS: BP 122/68
[2023-05-17] MEDS: ACETAMINOPHEN WITH CODEINE 1 TAB TAB PO PRN (04:01)
[2023-05-17] MEDS: VANCOMYCIN 750MG VIAL IVPB SCH ×2 (06:04→14:45)
[2023-05-17] MEDS: 0.9% NACL 250ML 250 ML IV SCH (06:04)
[2023-05-17 07:43] VITALS: BP 114/65
[2023-05-17] MEDS: POLYETHYLENE GLYCOL 3350 17 GM POWD.PACK PO SCH (08:58)
[2023-05-17] MEDS: FAMOTIDINE 20MG VIAL IV SCH (08:58)
[2023-05-17] MEDS: AMLODIPINE 5 MG TAB PO SCH (08:58)
[2023-05-17] MEDS: HEPARIN 5,000 UNIT VIAL SQ SCH (09:01)
[2023-05-17 12:00] VITALS: BP 131/73
[2023-05-17] MEDS ORDERED: ONDA8TAB12 PO (15:43)
[2023-05-17] MEDS ORDERED: IBUP-2077 PO (15:43)
[2023-05-17 16:00] VITALS: BP 116/79
== END 2023-05-17 18:30 | disposition home or self-care (01) | DRG 339 ==
LOC: EDH 06:38 → EDBD 06:38 → EDHIP 11:50 → 3AH 12:35
PROVIDERS: ADMIT Internal Medicine; ATTEND Internal Medicine
PROC: 0DTJ4ZZ Resection of Appendix, Percutaneous Endoscopic Approach (ICD-10-PCS; principal; 2023-04-29 10:42)
PROC: 0W9F3ZZ Drainage of Abdominal Wall, Percutaneous Approach (ICD-10-PCS; 2023-05-05)
DX: K35.33 Acute appendicitis with perforation, localized peritonitis, and gangrene, with abscess (principal); E87.1 Hypo-osmolality and hyponatremia; I24.8 Other forms of acute ischemic heart disease; K57.32 Diverticulitis of large intestine without perforation or abscess without bleeding; Z20.822 Contact with and (suspected) exposure to COVID-19; K75.9 Inflammatory liver disease, unspecified; R73.9 Hyperglycemia, unspecified; B96.20 Unspecified Escherichia coli [E. coli] as the cause of diseases classified elsewhere; Z82.49 Family history of ischemic heart disease and other diseases of the circulatory system; Z90.49 Acquired absence of other specified parts of digestive tract; Y83.8 Other surgical procedures as the cause of abnormal reaction of the patient, or of later complication, without mention of misadventure at the time of the procedure
CPT/HCPCS: 10030; 36415; 71045; 74177; 74178; 76942; 80048; 80053; 80202; 81001; 82550; 82948; 83036; 83615; 83690; 83735; 84145; 84443; 84484; 85025; 85027; 85610; 85651; 85730; 86140; 87040; 87071; 87077; 87186; 87205; 87635; 87880; 93005; 93306; 93356; C9803; G0378; J0330; J1450; J1644; J1885; J2175; J2250; J2270; J2405; J2543; J2704; J3010; J3370; J3480; J3490; J7030; J7042; J7512; Q0163; Q9963; Q9967